=== PATIENT | male | born 1935 | race Caucasian/White ===

== ENCOUNTER 2023-02-25 09:00 | Day surgery (SDC) | payer MEDICARE ==
[~2023-02-25] VITALS: Ht 167.6 cm; Wt 101.1 kg
[~2023-02-25 09:00] MED LIST: ALBU8.5H INH; ATOR1TAB21 PO; CYCLOPENTOLATE 1% OPHTH SOLN 2ML BTL OD SCH; FLURBIPROFEN 0.03% OPHTH SOLN 2.5 ML OD SCH; LIDOCAINE 1% SDV 5ML VIAL As Ordered ONE; LOSA100T8 PO; LR 1,000 ML IV SCH; PHENYLEPHRINE 2.5% OPHTH SOL 2ML OD SCH; PIOG1TAB55 PO; TETRACAINE 0.5% OPHTH SOLN 4ML OD SCH; VITA200016 PO
[2023-02-25] MEDS ORDERED: MIDAZOLAM INJ 2MG/2ML VIAL As Ordered ONE (12:13)
[2023-02-25] MEDS ORDERED: fentaNYL 100 MCG/2 ML INJECTION As Ordered ONE (12:18)
[2023-02-25 12:43] VITALS: BP 179/89; TEMP 97.2; O2SAT 96
== END 2023-02-25 15:10 | disposition home or self-care (01) ==
LOC: M SDC 09:00
PROVIDERS: ATTEND Ophthalmology
DX: H25.11 Age-related nuclear cataract, right eye (principal); E11.9 Type 2 diabetes mellitus without complications; I10 Essential (primary) hypertension; E78.5 Hyperlipidemia, unspecified; J45.909 Unspecified asthma, uncomplicated; F17.220 Nicotine dependence, chewing tobacco, uncomplicated; Z79.51 Long term (current) use of inhaled steroids; Z79.899 Other long term (current) drug therapy
CPT/HCPCS: 66984; J2250; J3010; V2632